=== PATIENT | female | born 1945 | race Caucasian/White ===

== ENCOUNTER 2017-05-21 18:31 | Observation (INO) | payer MEDICARE ==
[2017-05-21 19:22] LABS: PTT 27.7 SEC (22.9-36.1); Prothrombin Time 13.9 SEC (12.0-14.7)
[2017-05-21 19:23] LABS: Hematocrit 21.1 % (36.0-47.0); Mean Platelet Volume 11.1 fL (7.4-10.4); Red Blood Cell (RBC) Count 2.91 mill/uL (4.20-5.40); White Blood Cell (WBC) Count 7.8 thou/uL (4.8-10.8)
[2017-05-21 19:41] LABS: Anisocytosis MODERATE=16-30 cells (100X) (0-5/hpf); Band 7 % (5-11); Basophilic Stippling SLIGHT = 1-2 cells (100X) (None Seen); Elliptocytes SLIGHT = 2-5 cells (100X) (0-1/hpf); Hypochromia SLIGHT = 6-15 cells (100X) (0-5/hpf); Microcytosis MODERATE=15-30 cells (100X) (0-5/hpf); Neutrophil 64 % (42-75); Ovalocytes SLIGHT = 2-5 cells (100X) (0-1/hpf); Polychromasia SLIGHT = 2-3 cells (100X) (0-2/hpf); Schistocytes SLIGHT = 2-5 cells (100X) (0-1/hpf); Target Cells SLIGHT = 2-5 cells (100X) (0-1/hpf); Tear Drops SLIGHT = 2-5 cells (100X) (0-1/hpf)
[2017-05-21 20:00] LABS: Troponin I Less than 0.010 ng/mL (< 0.028)
[2017-05-21 20:02] LABS: Chloride 105 mmol/L (98-107)
[2017-05-21 20:05] LABS: Anion Gap 13 mmol/L (10-20); Carbon Dioxide 24 mmol/L (23-31)
[2017-05-21 20:12] LABS: ALT (SGPT) 10 U/L (8-55); AST (SGOT) 12 U/L (5-34); Alkaline Phosphatase 70 U/L (40-150); BUN (Urea Nitrogen) 14 mg/dL (9.8-20.1); Bilirubin, Total 0.2 mg/dL (0.2-1.2); CK (CPK) 50 U/L (29-168); Calc. Creatinine Clearance 0 mL/min (70-130); Estimated GFR-MDRD 52; Protein, Total 6.8 g/dL (6.0-8.3)
--- NOTE | 2017-05-21 20:19 | RAD ---
AP VIEW CHEST 05/21/17 HISTORY: Chest pain. FINDINGS: AP view chest is obtained on 05/21/17. Left shoulder reversed arthroplasty is seen. The lungs are well aerated. No evidence of active intrathoracic disease is seen. No evidence of effus ions, pneumonia or pneumothorax seen. IMPRESSION: Unremarkable AP view chest. POS: [facility]
[2017-05-21 22:19] VITALS: BMI 34.7
[2017-05-21] MEDS ORDERED: HYDROcodone/Acetaminophen 10/325 mg Tablet PO PRN (22:45)
[2017-05-21] MEDS ORDERED: tiZANidine HCl 4 MG TAB PO PRN (22:45)
[2017-05-21] MEDS ORDERED: Senokot 8.6 MG TAB PO PRN (22:49)
[2017-05-21] MEDS ORDERED: Ondansetron ODT 4 MG TAB PO PRN (22:49)
[2017-05-21] MEDS ORDERED: Acetaminophen 325 MG TAB PO PRN (22:49)
--- NOTE | 2017-05-21 23:15 | PDOC.EVN ---
Event Note - Event Note Event Note: Attending H&P I personally evaluated the patient and discussed the management with Dr. Wray. I have reviewed the written H&P and it is repeated by me. I agree with the History, Examination, Assessment and Plan documented above with any addition or exceptions noted below.
[2017-05-22] MEDS ORDERED: Loratadine 10 MG TAB PO PRN (00:10)
--- NOTE | 2017-05-22 00:50 | HP-2 ---
CODE STATUS: FULL. PRIMARY CARE PHYSICIAN: Dr. Kody Drummond. ATTENDING: Hemant Galvez M.D. RESIDENT: Brianna Wray DO HISTORIAN: The patient. CHIEF COMPLAINT: Low hemoglobin and fatigue x2 weeks. HISTORY OF PRESENT ILLNESS: The patient is a 72-year-old female with past medical history of iron-de ficiency anemia last admitted in 12/2015 for a GI bleed here today due to critical lab value of hemog lobin of 6.0 from PCP lab draw done today. The patient reports she has been having increased fatigue recently. She was in a lot of pain. Had a home health nurse come and draw labs and got a call toluis fernando young to come into the hospital. She has had a chronic history of this problem, receiving 1 unit of bloo d within the last 2 weeks in [place]. She has melenic stools off and on, reports about every 4-6 wee ks. She reports she will have lower abdominal cramping and the next morning have melenic stools. In the past, a year ago, she had a colonoscopy and EGD which revealed only Jarod erosions and hiatal hernia with a colonic polyp. There was no obvious source for her bleeding at that time. She takes i maribel every other day for this issue and was to follow up with a GI doctor, although she has lost follo wup. The patient does have a family history of her mom with colectomy due to so many polyps. They w ere not able to pass a scope through and also, mother with increased bleeding. The patient has never seen a operater in the past. PAST MEDICAL HISTORY: 1. Osteoarthritis. 2. Iron-deficiency anemia. 3. Spinal stenosis. 4. Fibromyalgia. 5. Hypertension. 6. Kauffman's palsy. 7. Gout. 8. Anxiety. 9. Depression. PAST SURGICAL HISTORY: 1. Left shoulder. 2. Right hand. 3. Diskectomy of lumbar area. ALLERGIES: SULFA. MEDICATIONS: 1. Iron 325 mg p.o. q. 2 days. 2. MiraLax 17 grams p.o. daily p.r.n. 3. Colace 100 mg p.o. daily. 4. Vitamin B12 1000 mcg p.o. daily. 5. Vasotec 10 mg p.o. daily. 6. Celexa 40 mg p.o. daily. 7. Wellbutrin 100 mg p.o. daily. 8. Allopurinol 300 mg p.o. daily. 9. [place] 10/325 mg one tab p.o. q. 6 hours p.r.n. 10. Glucosamine/chondroitin 1 capsule p.o. daily. 11. Protonix 40 mg p.o. daily. 12. Daily multivitamin. 13. Zanaflex 2 tabs p.o. at bedtime p.r.n. FAMILY HISTORY: Mother with precancerous lesions, emergency hysterectomy due to bleeding, increased bleeding from bladder on one occasion, colectomy due to many polyps. SOCIAL HISTORY: The patient denies tobacco use, reports social drinking with 1 Grundy drink per wee k and no drug use. REVIEW OF SYSTEMS: A 12-point review of systems was performed and revealed symptoms discussed in HPI . Additional symptoms, she endorses was a mild amount of shortness of breath today in the ER, which has since resolved now along with chronic back pain and left shoulder pain. All other review of syst ems was negative. Notably, no hematemesis, nausea, vomiting, or diarrhea. PHYSICAL EXAMINATION: VITAL SIGNS: Blood pressure 137/63, pulse 98, respiratory rate 16, T-max 98.6, pulse ox 100% on 2 li ters, current weight 91.17 kilograms (of note, when the patient was evaluated, was satting 96%-97% on room air). GENERAL: The patient is alert and oriented x4, in no acute distress, appropriately interactive. EYES: PERRLA. EOMI. Does have conjunctival pallor. ENT: Oropharynx within normal limits. CARDIOVASCULAR: Regular rate and rhythm with a 3/6 systolic murmur. Radial pulses 2+. RESPIRATORY: Normal effort, no retractions. LUNGS: Clear to auscultation bilaterally. SKIN: Warm and dry. ABDOMEN: Soft and nontender. Bowel sounds are present in all 4 quadrants. No masses or distention. EXTREMITIES: No clubbing, cyanosis. Does have 1+ pitting edema in bilateral lower extremities. MUSCULOSKELETAL: Structure within normal limits. NEUROLOGIC: The patient does have a facial droop on the left with ptosis and mouth droop from chroni c Kauffman's palsy at baseline. PSYCHIATRIC: Appropriate. The patient is tangential in her speaking. LABORATORY DATA AND IMAGIN. CBC: White blood cell count 7.8, hemoglobin 6.6, hematocrit 21.1, platelets 262, MCV 72.3. 2. Chemistries: Sodium 138, potassium 33.9, chloride 105, CO2 24, BUN 14, creatinine 1.03, glucose 106, GFR 52, calcium 9.0, total protein 6.8, albumin 3.8, AST 12, ALT 10, alkaline phosphatase 70, to gavin bilirubin 0.2. 3. Coags: PT 13.9, PTT 27.7, INR 1.1. Blood type B positive, antibody negative. 4. CK 50, CK-MB 1.1, troponins less than 0.010. 5. Peripheral smear: 16-30 anisocytosis, 15-30 microcytosis, 6-15 hypochromia, 2-3 polychromasia, 1 -2 basophilic stippling, 2-5 target cells, 3-5 cystocytes, 3-5 ovalocytes, 3-5 elliptocytes, 3-5 tear drop cells. 6. EKG with occasional PACs, sinus tachycardia. ASSESSMENT AND PLAN: 1. Symptomatic anemia. With the patient's history of iron deficiency, her microcytosis, and her rep orted melena stools despite a negative FOBT today in the ED, our concern for possible gastrointestina l bleed, possibly small bowel which has not been evaluated with upper and lower endoscopy. We will c onsult GI in the morning. There is also a concern with her abnormalities of her peripheral smear for possible other underlying etiology for anemia. We will order lead screen, haptoglobin, retic count, B12, and folate. The patient will likely need a Hematology workup outpatient. The patient's vital signs are stable. We will transfuse 2 units packed red blood cells and repeat H&H in the morning. T he patient is with transfusion only 2 weeks ago and now down to 6.6. 2. Melena. FOBT is negative today. We will recheck an FOBT and likely need repeat colonoscopy with family history. Consider tagged RBC study for evaluation of possible bleed in areas that are not ab le to be seen by colonoscopy and EGD. 3. Chronic back pain. We will continue her home [place] and Zanaflex. 4. Hypertension. We will continue her Vasotec. Currently, stable. 5. Systolic murmur. The patient reports that she had a full evaluation with echocardiogram done in 2011. With increased lower extremity swelling, we will likely need repeat echo as outpatient. Due t o the possibility of murmur and lower extremity swelling being a sign of congestive heart failure, we will give a small dose of Lasix post-transfusion. 6. Anxiety. The patient does appear anxious on exam. We will continue her home medications of Meredith xa and Wellbutrin. 7. Fibromyalgia. We will continue home medications for pain. 8. Venous thromboembolism prophylaxis. We will give sequential compression devices with current pos sibility of bleeding. DISPOSITION AND LENGTH OF HOSPITAL STAY: 1-2 days. Symptomatic medications will be provided. History and physical exam, as well as management, discussed with Dr. Hemant Galvez.
[2017-05-22] MEDS ORDERED: Furosemide 20 MG/2 ML VIAL SLOW IVP SCH (03:00)
--- NOTE | 2017-05-22 06:07 | PDOC.FM ---
- Subjective Subjective: Patient states she feels great today. She is ready to be discharged so that she can make a dentist appointment. She denies any black or tarry stools at this time. She denies abdominal pain, lightheadedness, or weakness. She has no other complaints at this time. - Objective Vital Signs & Weight: Vital Signs (12 hours) Temp Pulse Pulse Resp BP BP Pulse Ox 05/22/17 03:58 98.5 F 85 20 162/67 H 98 05/22/17 01:31 98.3 F 90 20 149/68 H 96 05/22/17 00:52 98.5 F 103 H 20 138/61 97 05/22/17 00:51 98.3 F 90 20 149/68 H 96 05/21/17 22:23 98.4 F 106 H 18 146/71 H 96 05/21/17 22:00 98.8 F 101 H 101 H 16 136/68 136/68 95 Weight Weight 91.852 kg I&O: 05/20/17 05/21/17 05/22/17 06:59 06:59 06:59 Intake Total 938 Balance 938 Result Diagrams: 05/22/17 07:28 05/21/17 19:01 Phys Exam - Physical Examination HEENT: moist MMs Neck: no nodes Respiratory: no wheezing, clear to auscultation bilateral Cardiovascular: RRR systolic murmur present Gastrointestinal: soft, non-tender, no distention, positive bowel sounds Musculoskeletal: no edema, pulses present Neurological: non-focal, normal sensation, moves all 4 limbs Lymphatic: no nodes Psychiatric: normal affect, A&O x 3 Skin: no rash Dx/Plan (1) Symptomatic anemia Code(s): D64.9 - ANEMIA, UNSPECIFIED Status: Acute Plan: -Long history of Iron deficiency anemia -s/p 2u pRBC -Hgb this AM 8.7 -Reticulocyte index is 1.4 indicating hypoproliferation -Likely discharged today if not symptomatic for outpatient follow up with [facility] [facility] (2) Melena Code(s): K92.1 - MELENA Status: Acute Plan: -Negative FOBT -Patient states subjective history -Will likely need outpatient follow up with GI (3) Systolic murmur Code(s): R01.1 - CARDIAC MURMUR, UNSPECIFIED Status: Acute Plan: -Last echo in 2011 -Recommend outpatient follow up for this (4) Fibromyalgia Status: Acute Plan: -Continue home meds (5) Anxiety Code(s): F41.9 - ANXIETY DISORDER, UNSPECIFIED Status: Chronic Plan: -Continue home meds - Plan Plan: Patient is asymptomatic and hgb has elevated to 8.7. Patient will be discharged for outpatient follow up.
[2017-05-22 06:42] LABS: IRF 0.562 Ratio (0.163-0.362); Reticulocyte Count 3.1 % (0.5-1.5)
[2017-05-22 06:51] LABS: Iron 9 ug/dL (50-170)
[2017-05-22 07:38] LABS: Hematocrit 28.6 % (36.0-47.0); Mean Platelet Volume 11.1 fL (7.4-10.4); Red Blood Cell (RBC) Count 3.72 mill/uL (4.20-5.40); White Blood Cell (WBC) Count 8.3 thou/uL (4.8-10.8)
[2017-05-22 07:58] LABS: Anion Gap 11 mmol/L (10-20); BUN (Urea Nitrogen) 13 mg/dL (9.8-20.1); Calc. Creatinine Clearance 81 mL/min (70-130); Calcium 8.9 mg/dL (7.8-10.44); Carbon Dioxide 28 mmol/L (23-31); Chloride 104 mmol/L (98-107); Estimated GFR-MDRD 63
[2017-05-22] MEDS ORDERED: Ferrous Sulfate 325 MG TAB PO SCH (08:00)
[2017-05-22 08:22] LABS: Band 2 % (5-11); Hypochromia SLIGHT = 6-15 cells (100X) (0-5/hpf); Microcytosis SLIGHT = 6-15 cells (100X) (0-5/hpf); Neutrophil 43 % (42-75); Ovalocytes SLIGHT = 2-5 cells (100X) (0-1/hpf); Polychromasia SLIGHT = 2-3 cells (100X) (0-2/hpf); Reactive Lymphocytes 1 % (0-10)
[2017-05-22 08:25] VITALS: BP 143/76; TEMP 98.8
[2017-05-22] MEDS ORDERED: [UNRECOGNIZED DRUG - OTHER] PO SCH (09:00)
[2017-05-22] MEDS ORDERED: Multivitamin W/ Minerals 1 TAB PO SCH (09:00)
[2017-05-22] MEDS ORDERED: Docusate 100 MG CAP PO SCH (09:00)
[2017-05-22] MEDS ORDERED: Citalopram 20 MG TAB PO SCH (09:00)
[2017-05-22] MEDS ORDERED: Allopurinol 300 MG TAB PO SCH (09:00)
[2017-05-22] MEDS ORDERED: Cyanocobalamin (Vitamin B-12) 1,000 MCG TAB PO SCH (09:00)
[2017-05-22] MEDS ORDERED: Polyethylene Glycol 3350 17 GM Packet PO PRN (09:00)
--- NOTE | 2017-05-22 11:51 | ADD-PRG ---
DATE OF SERVICE: 05/22/2017 This is an addendum to the note of Dr. Toribio Cortes. Ms. Brown is a very pleasant, alert 72-year-old white female who was admitted with a profound anemi a with a hemoglobin of 6.6. She has been transfused to a level of 8.7. Her ferritin level on admiss ion was 5. She has a prior diagnosis of iron deficiency anemia, but remains anemic despite taking or al iron. She has also had a negative workup for celiac disease. Also of interest is the fact that h er peripheral smear is quite abnormal showing target cells, teardrops cells, ovalocytes, elliptocytes and schistocytosis. Her reticulocyte index was 0.9. She is feeling and looking much better and is anxious to go home. She will be discharged to follow up with Dr. Grimm in GI and with Hematology. I believe her anemia is likely multifactorial. She obviously has an element of iron deficiency with a ferritin of 5, but we need to also consider the possibility of thalassemia or myeloproliferative di sorder given her abnormal peripheral smear and her nonresponse to oral iron.
--- NOTE | 2017-05-22 13:12 | DIS-2 ---
DATE OF ADMISSION: 05/21/2017 DATE OF DISCHARGE: 05/22/2017 RESIDENT: Toribio Cortes MD ADMITTING ATTENDING: Hemant Galvez M.D. DISCHARGE ATTENDING: Bishop Alejandre MD CONSULTATIONS: Case management for financial assistance. PROCEDURES: The patient did undergo a chest x-ray on 05/21/2017 that showed no evidence of active intrathoracic disease seen. No evidence of effusions, pneumonia, or pneumothorax seen. Transfusion of 2 units of packed red blood cells. PRIMARY DIAGNOSES: 1. Symptomatic anemia. 2. Melena. 3. Systolic murmur. SECONDARY DIAGNOSES: 1. Fibromyalgia. 2. Anxiety. DISCHARGE MEDICATIONS: 1. Multivitamin. 2. Celexa 40 mg. 3. Tizanidine 4 mg. 4. Allopurinol 300 mg. 5. [place] 10/325 mg. 6. Bupropion 100 mg. 7. Vitamin B12, 1000 mcg. 8. Glucosamine chondroitin. 9. Docusate 100 mg. 10. Enalapril maleate 10 mg. 11. Protonix 40 mg. 12. MiraLax 17 grams. 13. Ferrous sulfate 325 mg. 14. Cetirizine 10 mg. DISCONTINUED MEDICATIONS: None. HISTORY OF PRESENT ILLNESS AND HOSPITAL COURSE: This is a 72-year-old female with past medical history of iron deficiency anemia, last admitted in December 2015 for a GI bleed, here today due to a critical lab value of hemoglobin 6.0 from PCP lab draw done today. The patient reports she has been having increased fatigue recently. She was in a lot of pain. Had home health nurse come and saw , draw labs and got a call today to come to the hospital. She has had a chronic history of this problem receiving 1 unit of blood within the last 2 weeks in [place]. She has melenic stools off and on and reports about every 4- 6 weeks. She reports she will have lower abdominal cramping pain and next morning will have melenic stools. In the past year ago, she had a colonoscopy and EGD which revealed only Jarod erosions and a hiatal hernia with colonic polyps. There was no obvious source for her bleeding at that time. She takes iron every other day for this issue and has followed up with GI doctor, although she has lost followup. The patient does have a family history with her mom with colectomy due to so many polyps. They are not able to pass the scope through and also the mother had increased bleeding. Patient has never seen a warp scouring vat tender in the past. During this hospitalization, the patient was transfused 2 units of blood with her hemoglobin increasing from 6.6-8.7. Patient's platelet count was ranged from 218-262. She did have a reticulocyte count of 3.1 that translated into a reticulocyte index of 1.4 noting that her bone marrow is not responding appropriately to stimulation. She was also found to have a ferritin of 5.03, which is very low and she needs to be repleted at that time. Also, her iron was 9, which is also low. She had vitamin B12 of 605. All other labs are unremarkable. She did have a peripheral smear that showed hypochromia polychromasia, basophilic stippling, anisocytosis, microcytosis, target cells, teardrops cells , ovalocytes, elliptocytes, schistocytes. This is very confusing picture as anemia of this case should point to one or a few of these morphologies, but definitely not having a marcano positive morphology. We do have some suspicion that she might have an underlying myelodysplastic or myeloproliferative disease and so she is undergoing a hemoglobin electrophoresis and a serum protein electrophoresis test and we will follow up with those results with her in the coming days when those are made available. She has never seen a warp scouring vat tender and so we feel that it is important with these findings and in coordination of her profound anemia that she be seen by warp scouring vat tender in the near future. Also, it has been like 1.5 years since her last GI consultation with Dr. Grimm and we do feel like she would benefit from an outpatient consultation with Dr. Grimm or another calendar control clerk blood bank to determine if they wanted to do anything more for her melenic stools. She also followed up with her PCP, Dr. Carlson to coordinate the care on this. The patient otherwise had no other complications during this hospitalization. She was no longer symptomatic and was no longer fatigued, felt like she had a lot of energy and said that she was ready to get going. She otherwise had no complications during this hospitalization and was discharged in the appropriate condition. DISPOSITION: Stable. DISCHARGE INSTRUCTIONS: 1. Location: She will be discharged home in her own care. 2. Diet: Will be a heart healthy diet. 3. Activity: Will be as tolerated with no restrictions. A follow up will be with Dr. Grimm in 1-2 weeks, her primary care physician, Dr. Carlson by tomorrow 05/23/2017, and with Dr. Kj Lafleur, the on-call warp scouring vat tender for today. She has seen the nurse practitioner Shannan San in the past and so we recommend that she follow up with Hematology clinic here for further workup for a myelodysplastic versus myeloproliferative disease. CHARBEL
[2017-05-24 05:15] LABS: Haptoglobin 120 mg/dL (34-200)
[2017-05-28 05:15] LABS: Lead-Whole Blood Less than 1 ug/dL (0-19)
--- NOTE | 2017-06-06 13:27 | EKG ---
Test Reason : Blood Pressure : / mmHG Vent. Rate : 107 BPM Atrial Rate : 107 BPM P-R Int : 128 ms QRS Dur : 082 ms QT Int : 334 ms P-R-T Axes : 049 024 059 degrees QTc Int : 445 ms Sinus tachycardia with Premature atrial complexes with Abberant conduction Otherwise normal ECG Confirmed by AL AMANDA ([id number]), subeditor ANEESH FAIR ([id number]) on 06/06/2017 1:26:29 PM Referred By: Confirmed By:AL AMANDA
== END 2017-05-22 11:39 | disposition home or self-care (01) ==
LOC: ERS 18:31 → T4-A 21:41
PROVIDERS: ADMIT Family Medicine; ATTEND Family Medicine
DX: D50.9 Iron deficiency anemia, unspecified (principal); K92.1 Melena; R01.1 Cardiac murmur, unspecified; M79.7 Fibromyalgia; F41.9 Anxiety disorder, unspecified; M19.90 Unspecified osteoarthritis, unspecified site; I10 Essential (primary) hypertension; G51.0 Bell's palsy; M10.9 Gout, unspecified; M54.9 Dorsalgia, unspecified; G89.29 Other chronic pain; Z79.899 Other long term (current) drug therapy; Z88.2 Allergy status to sulfonamides; Z98.890 Other specified postprocedural states
CPT/HCPCS: 36430; 71010; 80048; 80053; 82274; 82550; 82553; 82607; 82728; 83010; 83540; 83550; 83655; 84484; 85025 ×2; 85046; 85610; 85730; 86850; 86900; 86901; 86920; 93005; 94760; 99285; G0378; P9016 ×2; 36415; A4216; J1940

== ENCOUNTER 2017-07-18 13:19 | Inpatient (IN) | payer MEDICARE ==
[2017-07-18 14:20] LABS: ALT (SGPT) Less than 7 U/L (8-55); AST (SGOT) 9 U/L (5-34); Albumin 3.8 g/dL (3.4-4.8); Alkaline Phosphatase 70 U/L (40-150); Anion Gap 14 mmol/L (10-20); Anisocytosis MODERATE=16-30 cells (100X) (0-5/hpf); BUN (Urea Nitrogen) 14 mg/dL (9.8-20.1); Band 4 % (5-11); Bilirubin, Total 0.3 mg/dL (0.2-1.2); Calc. Creatinine Clearance 0 mL/min (70-130); Carbon Dioxide 27 mmol/L (23-31); Chloride 103 mmol/L (98-107); Elliptocytes SLIGHT = 2-5 cells (100X) (0-1/hpf); Estimated GFR-MDRD 57; Globulin 2.8 g/dL (2.4-3.5); Glucose 101 mg/dL (83-110); Hemoglobin 6.8 g/dL (12.0-16.0); Hypochromia MODERATE=16-30 cells (100X) (0-5/hpf); Large Platelets SLIGHT; Lymphocytes 16 % (21-51); MDiff Complete? YES; Mean Corpuscular HGB CONC 30.4 g/dL (32.0-36.0); Mean Corpuscular Hemoglobin 21.5 pg (27.0-31.0); Mean Corpuscular Volume 70.9 fl (81.0-99.0); Mean Platelet Volume 8.9 fL (7.4-10.4); Microcytosis MODERATE=15-30 cells (100X) (0-5/hpf); Monocytes 23 % (0-10); Neutrophil 56 % (42-75); Ovalocytes SLIGHT = 2-5 cells (100X) (0-1/hpf); PLT Morphology Comment Appears Increased; Platelet Count 406 thou/uL (130-400); Poikilocytosis SLIGHT = 6-15 cells (100X) (0-5/hpf); Polychromasia SLIGHT = 2-3 cells (100X) (0-2/hpf); Protein, Total 6.6 g/dL (6.0-8.3); RBC Distribution Width 18.4 % (11.5-14.5); Red Blood Cell (RBC) Count 3.18 mill/uL (4.20-5.40); Schistocytes SLIGHT = 2-5 cells (100X) (0-1/hpf); Sodium 140 mmol/L (136-145); Tear Drops SLIGHT = 2-5 cells (100X) (0-1/hpf); White Blood Cell (WBC) Count 4.7 thou/uL (4.8-10.8)
[2017-07-18] MEDS ORDERED: Acetaminophen 650 MG Suppository PR PRN (17:59)
[2017-07-18] MEDS ORDERED: Bisacodyl 5 MG TAB PO PRN (17:59)
[2017-07-18] MEDS ORDERED: Acetaminophen 325 MG TAB PO PRN (17:59)
[2017-07-18] MEDS ORDERED: Acetaminophen/Codeine 30-300mg Tablet PO PRN (18:00)
--- NOTE | 2017-07-18 18:55 | HP ---
PRIMARY CARE PHYSICIAN: Dr. Octavio Gates. CHIEF COMPLAINT: Generalized weakness. HISTORY OF PRESENT ILLNESS: Ms. Brown is a pleasant 72-year-old lady who was seen at [facility] on 07/18/2017. She was hospitalized at this facility from 05/21/2017 to 05/22/2017 for a low hemoglobin and fatigue. At that point, she received packed RBC transfusions. She was referred to Hematology and Gastroente rology Services as outpatient. She followed up with Hematology Service and was told that she did not have a hematologic malignancy. She has not followed up with Gastroenterology Service. She reports that over the last couple of weeks, she has been having generalized weakness. She report s shortness of breath with exertion. She reports generalized body aches. She also reports lighthead edness and episodes where she might pass out. She denies any fevers or chills. She denies any nause a or vomiting. REVIEW OF SYSTEMS: The following complete review of systems was negative, unless otherwise mentioned in the HPI or below: Constitutional: Weight loss or gain, ability to conduct usual activities. Skin: Rash, itching. Eyes: Double vision, pain. ENT/Mouth: Nose bleeding, neck stiffness, pain, tenderness. Cardiovascular: Palpitations, dyspnea on exertion, orthopnea. Respiratory: Shortness of breath, wheezing, cough, hemoptysis, fever or night sweats. Gastrointestinal: Poor appetite, abdominal pain, heartburn, nausea, vomiting, constipation, or diarr hea. Genitourinary: Urgency, frequency, dysuria, nocturia. Musculoskeletal: Pain, swelling. Neurologic/Psychiatric: Anxiety, depression. Allergy/Immunologic: Skin rash, bleeding tendency. PAST MEDICAL HISTORY: Significant for osteoarthritis, iron deficiency anemia, spinal stenosis, fibro myalgia, hypertension, Kauffman's palsy, gout, anxiety, depression, anemia. PAST SURGICAL HISTORY: Significant for left shoulder surgery, right shoulder surgery, diskectomy of lumbar area. She also reports having bidirectional GI scopes about a year ago. FAMILY HISTORY: Mother with precancerous lesions, emergency hysterectomy due to bleeding. She also had colectomy due to many polyps. SOCIAL HISTORY: The patient reports occasional alcohol use, no tobacco use, and no recreational drug use. ALLERGIES: SULFA. CURRENT MEDICATIONS: These need to be clarified, but appear to include iron, MiraLax, Colace, vitami n B12, Vasotec, Celexa, Wellbutrin, allopurinol, [place], glucosamine/chondroitin sulfate, Protonix, mu ltivitamins and Zanaflex. PHYSICAL EXAMINATION: GENERAL: On examination, Ms. Brown is awake and alert, not in acute distress. VITAL SIGNS: Blood pressure is 115/41, pulse is 77, she is breathing at rate of 18, and saturating 9 7% on room air. She is afebrile. EYES: She has conjunctival pallor, but no scleral icterus. ENT: Moist mucosal membranes, no oropharyngeal erythema or exudates. NECK: Supple, nontender, normal range of movement, trachea is midline. RESPIRATORY: Accessory muscles of breathing are not active. Chest wall movements are symmetrical bi laterally. Lungs are clear to auscultation without wheeze, rhonchi or crepitations. CARDIOVASCULAR: S1 and S2 are heard, regular. Peripheral pulses palpable. No carotid bruit, no per icardial rub. ABDOMEN: Soft, nontender, bowel sounds heard, no hepatomegaly, no splenomegaly. NEUROLOGIC: Cranial nerves II-XII are intact. Deep tendon reflexes are 2+. MUSCULOSKELETAL: Power is 5/5 in all four extremities. She has bilateral lower extremity edema. LYMPHATIC: No cervical lymphadenopathy. SKIN: No rashes or subcutaneous nodules. PSYCHIATRIC: Normal mood, normal affect, patient is oriented to person, place, and time. LABORATORY DATA AND IMAGING: Ms. Brown's labs and investigations were reviewed. She has a white c ount of 4700, hemoglobin 6.8, last known hemoglobin 6.1 on 07/16/2017 and 8.7 on 05/22/2017, MCV decr eased at 70.9, elevated RDW of 18.4, elevated platelet count of 406,000, last known platelet count 31 8,000 on 07/16/2017, unremarkable liver profile. ASSESSMENT AND PLAN: Ms. Brown is a pleasant 72-year-old lady, who was seen at [facility] on 07/18/2017. Her problem list includes: 1. Symptomatic anemia. She reports anemia with symptoms of shortness of breath as well as near sync ope. She will be admitted to the hospital for further management. Emergency room physician has cons ulted GI and Hematology Services. She has already seen air force pilot as outpatient, we will consumer credit counselor t hat consult. We await GI service input. The patient appears reluctant to undergo scope studies. We will recheck her hemoglobin and provide further transfusions as needed. I should note that her last occult blood test was negative during her previous hospitalization, another test ordered by the [facility] physician has not been reported yet. 2. Thrombocythemia: Mild, likely reactive to anemia. We will recheck platelet count. 3. Hypertension: Monitor vital signs, titrate antihypertensives as needed. 4. Osteoarthritis: Avoid nonsteroidal anti-inflammatory drugs. 5. Fibromyalgia: Continue home medications. Many thanks for allowing me to participate in Ms. Brown's care. Please feel free to contact me wit h any questions or concerns. LEVEL OF RISK: Moderate. LEVEL OF COMPLEXITY: Moderate.
[2017-07-18 20:04] VITALS: BMI 34.7
[2017-07-18] MEDS ORDERED: HYDROcodone/Acetaminophen 5/325 mg Tablet PO PRN ×2 (21:27)
[2017-07-18] MEDS: Sodium Chloride 0.9% 1,000 ML IV SCH (21:39)
[2017-07-19 05:27] LABS: Band 4 % (5-11); Hemoglobin 7.4 g/dL (12.0-16.0); Hypochromia SLIGHT = 6-15 cells (100X) (0-5/hpf); Lymphocytes 23 % (21-51); MDiff Complete? YES; Mean Corpuscular HGB CONC 30.7 g/dL (32.0-36.0); Mean Corpuscular Hemoglobin 22.6 pg (27.0-31.0); Mean Corpuscular Volume 73.7 fl (81.0-99.0); Mean Platelet Volume 9.2 fL (7.4-10.4); Microcytosis SLIGHT = 6-15 cells (100X) (0-5/hpf); Monocytes 41 % (0-10); Neutrophil 32 % (42-75); PLT Morphology Comment Appears Adequate; Platelet Count 393 thou/uL (130-400); RBC Distribution Width 19.2 % (11.5-14.5); Red Blood Cell (RBC) Count 3.28 mill/uL (4.20-5.40)
[2017-07-19 05:31] LABS: Anion Gap 10 mmol/L (10-20); BUN (Urea Nitrogen) 13 mg/dL (9.8-20.1); Calc. Creatinine Clearance 88 mL/min (70-130); Calcium 8.9 mg/dL (7.8-10.44); Carbon Dioxide 27 mmol/L (23-31); Chloride 105 mmol/L (98-107); Estimated GFR-MDRD 71; Glucose 99 mg/dL (83-110); Potassium 3.7 mmol/L (3.5-5.1); Sodium 138 mmol/L (136-145)
[2017-07-19] MEDS: Sodium Chloride 0.9% 1,000 ML IV SCH ×2 (09:30→09:40)
[2017-07-19] MEDS: HYDROcodone/Acetaminophen 10/325 mg Tablet PO PRN ×2 (13:36→19:16)
[2017-07-19] MEDS ORDERED: Citalopram 20 MG TAB PO SCH (14:00)
[2017-07-19] MEDS ORDERED: Docusate 100 MG CAP PO SCH (14:00)
[2017-07-19] MEDS ORDERED: Bupropion 100 MG SR TAB PO SCH (14:00)
[2017-07-19] MEDS ORDERED: Ferrous Sulfate 325 MG TAB PO SCH (14:00)
[2017-07-19] MEDS ORDERED: Multivitamin W/ Minerals 1 TAB PO SCH (14:00)
[2017-07-19] MEDS ORDERED: Allopurinol 300 MG TAB PO SCH (14:00)
--- NOTE | 2017-07-19 18:02 | PDOC.PN ---
- Subjective Encounter Start Date: 07/19/17 Encounter Start Time: 08:40 Pt seen for anemia. Denies chest pain or shortness of breath. No presyncope. - Objective MAR Reviewed: Yes Vital Signs & Weight: Vital Signs (12 hours) Temp Pulse Pulse Resp BP BP BP 07/19/17 17:45 97.4 F L 75 16 123/74 07/19/17 15:10 97.8 F 90 18 144/70 H 07/19/17 15:05 97.8 F 85 18 144/70 H 07/19/17 14:56 173/74 H 07/19/17 14:52 98.3 F 85 20 173/74 H 07/19/17 14:41 98.3 F 85 20 173/74 H 07/19/17 12:39 97.8 F 85 20 07/19/17 08:29 97.6 F 73 20 07/19/17 08:00 97.6 F 73 20 BP Pulse Ox 07/19/17 17:45 07/19/17 15:10 92 L 07/19/17 15:05 07/19/17 14:56 07/19/17 14:52 07/19/17 14:41 07/19/17 12:39 156/74 H 92 L 07/19/17 08:29 164/82 H 93 L 07/19/17 08:00 164/82 H 93 L Weight Weight 196 lb I&O: 07/18/17 07/19/17 07/20/17 06:59 06:59 06:59 Intake Total 1275 830 Balance 1275 830 Result Diagrams: 07/19/17 04:26 07/19/17 04:26 Phys Exam - Physical Examination Obese HEENT: PERRLA, moist MMs, sclera anicteric, oral pharynx no lesions conjunctival pallor Neck: no nodes, no JVD, supple, full ROM Respiratory: no wheezing, no rales, no rhonchi, clear to auscultation bilateral Cardiovascular: RRR, no rub Gastrointestinal: soft, non-tender, no distention, positive bowel sounds Neurological: moves all 4 limbs Psychiatric: normal affect Dx/Plan (1) Anemia Code(s): D64.9 - ANEMIA, UNSPECIFIED Status: Acute (2) Fibromyalgia Status: Chronic (3) Anxiety Code(s): F41.9 - ANXIETY DISORDER, UNSPECIFIED Status: Chronic (4) GERD (gastroesophageal reflux disease) Code(s): K21.9 - GASTRO-ESOPHAGEAL REFLUX DISEASE WITHOUT ESOPHAGITIS Status: Chronic (5) HLD (hyperlipidemia) Code(s): E78.5 - HYPERLIPIDEMIA, UNSPECIFIED Status: Chronic (6) HTN (hypertension) Code(s): I10 - ESSENTIAL (PRIMARY) HYPERTENSION Status: Chronic - Plan out of bed/ambulate, DVT proph w/SCDs * . Discussed with GI services. Will transfuse another unit pRBC. Plan for EGD tomorrow noted. Monitor vital signs, titrate antihypertensives as needed. Review of Systems - Review of Systems Constitutional: negative: fever, chills, sweats, weakness, malaise Respiratory: negative: Cough, Dry, Shortness of Breath, Hemoptysis, SOB with Excertion, Pleuritic Pain, Sputum, Wheezing Cardiovascular: negative: chest pain, palpitations, orthopnea, paroxysmal nocturnal dyspnea, edema, light headedness Gastrointestinal: negative: Nausea, Vomiting, Abdominal Pain, Diarrhea, Constipation, Melena, Hematochezia Genitourinary: negative: Dysuria, Frequency, Incontinence, Hematuria, Retention - Medications/Allergies Allergies/Adverse Reactions: Allergies Allergy/AdvReac Type Severity Reaction Status Date / Time Sulfa (Sulfonamide Allergy Intermediate Hives Verified 07/01/15 19:47 Antibiotics) Medications: Current Medications Acetaminophen (Tylenol) 650 mg PO Q4H PRN PRN Reason: Headache/Fever or Pain Acetaminophen (Tylenol) 650 mg MT Q4H PRN PRN Reason: Headache/Fever or Pain Acetaminophen/Codeine Phosphate (Tylenol #3) 1 tab PO Q6H PRN PRN Reason: Pain Hydrocodone Bitart/Acetaminophen ([place] 10/325) 1 tab PO Q6HR PRN PRN Reason: Pain Last Admin: 07/19/17 13:36 Dose: 1 tab Allopurinol (Zyloprim) 300 mg PO DAILY ISSA Bisacodyl (Dulcolax) 10 mg PO DAILYPRN PRN PRN Reason: Constipation Bupropion HCl (Wellbutrin Sr) 100 mg PO DAILY ISSA Cholecalciferol (Vitamin D3) 1,000 units PO DAILY ISSA Citalopram Hydrobromide (Celexa) 40 mg PO DAILY ISSA Docusate Sodium (Colace) 100 mg PO DAILY ISSA Enalapril Maleate (Vasotec) 10 mg PO DAILY ISSA Ferrous Sulfate (Feosol) 325 mg PO DAILY ISSA Iron/Minerals/Multivitamins (Theragran M) 1 tab PO DAILY ISSA Loratadine (Claritin) 10 mg PO DAILY PRN PRN Reason: ALLERGIES Polyethylene Glycol (Miralax) 17 gm PO DAILYPRN PRN PRN Reason: CONSTIPATION Sodium Chloride (Flush - Normal Saline) 10 ml IVF Q12HR ISSA Sodium Chloride (Flush - Normal Saline) 10 ml IVF PRN PRN PRN Reason: Saline Flush Sodium Chloride (Flush - Normal Saline) 10 ml IVF PRN PRN PRN Reason: Saline Flush Tizanidine HCl (Zanaflex) 4 mg PO HS PRN PRN Reason: MUSCLE SPASMS
[2017-07-19] MEDS ORDERED: tiZANidine HCl 4 MG TAB PO PRN (21:00)
--- NOTE | 2017-07-20 06:51 | CON ---
DATE OF CONSULTATION: 07/19/2017 REFERRING PHYSICIAN: Dr. Octavio Cuadra. REASON FOR CONSULTATION: Symptomatic anemia. HISTORY OF PRESENT ILLNESS: Ms. Rosanna Brown is a very pleasant 72-year-old female with f atigue, tiredness, low energy over the last several weeks. The patient has had anemia from before. The patient denies any abdominal pain, nausea or vomiting at the present time. No dysphagia or odyno phagia. The patient has been on oral iron therapy and agrees the stools are actually olive green. H owever, several weeks ago, she had an episode of black tarry stool, lasting for several days. At nicci t time, she did not seek any medical help. The patient has had history of anemia over the last coupl e of years. The patient was hospitalized here in 06/2015 with anemia. She was seen by Dr. Yoav Grimm. She had an EGD done and was found to have hiatus hernia and also Jarod ulcers in the hi atus hernia. The colonoscopy with removal of a couple of tiny polyps and also was found to have sigm oid diverticulosis. The patient has been seeing Dr. Rex Grimm. As per the consult by Dr. Renea aguilar, the patient had a capsule endoscopy in the past, which was negative for pathology. The patien t was hospitalized recently here and was referred to Hematology. Apparently, she has seen Dr. Bhargavi gonzalez as an outpatient in the office. The workup was basically negative. He was advised to stay on iro n supplement. The patient had been feeling tired and weak and had no energy for the last several wee ks. She says even if she stands up to cook something, she feels extremely fatigued and tired. She h as no dyspnea on exertion. No orthopnea. No PND. No chest pain, but for history of dark stools a f ew weeks ago, she has had no blood loss. There is no hematuria. No history of bleeding from the gum s, no history of nose bleeding. She came to the hospital because of the fatigue and tiredness. She had a CBC done. The CBC showed WBC of 4700, hemoglobin 6.8, hematocrit 22.5, MCV 70.9, indicating ir on deficiency. She has had 1 unit of packed RBCs. The blood count has come up to 7.4, hematocrit 24 .2. She still feels tired and fatigued, and no energy. She has no other relevant history. MEDICAL ILLNESSES: 1. Osteoarthritis. 2. Recurrent iron deficiency anemia. 3. Spinal stenosis. 4. Fibromyalgia. 5. Hypertension. 6. History of Kauffman's palsy. 7. Gout. 8. Anxiety and depression. 9. Hiatus hernia. 10. Colon polyp. 11. Diverticular disease. SURGERIES: 1. Status post left shoulder surgery. 2. Right shoulder surgery. 3. Lumbar diskectomy. 4. EGD and colonoscopy. 5. Negative capsule endoscopy. FAMILY HISTORY: Mother had some precancerous lesions in her womb and had a hysterectomy. She also h ad colectomy because of colon polyps. ALLERGIES: SULFA. SOCIAL HISTORY: Patient does not smoke, but drinks alcohol very occasionally. MEDICATIONS: Include iron supplements, MiraLax, Colace, vitamin B12, Vasotec. Other medicines inclu de Celebrex, Wellbutrin, allopurinol, [place], glucosamine, Protonix, multivitamin, Zanaflex. REVIEW OF SYSTEMS: A 10-point system reviewed. Constitutional: No history of any fever, night swea ts, or any weight loss. Does complain of poor energy, fatigue etc. Respiratory System: No history of chronic cough, dyspnea, hemoptysis. Cardiovascular System: No chest pain, no palpitation, no exe rtional dyspnea, orthopnea, or PND. Gastrointestinal: As in the history of present illness. Genito urinary: No hematuria, dysuria, or frequency of urination. Musculoskeletal: History of back pain, arthralgias. Endocrine: Unremarkable. Hematologic: Anemia with some fatigue and tiredness. Neuro /psychiatric: Unremarkable. PHYSICAL EXAMINATION: GENERAL: Patient is obese, appears very comfortable. She is awake, alert, oriented to time and plac e and person. VITAL SIGNS: Afebrile, pulse is 77, blood pressure 115/60. HEENT: Conjunctivae clear. NECK: Supple. No adenitis or thyromegaly noted. CARDIOVASCULAR SYSTEM: First and second heart sounds normal. LUNGS: Clear to auscultation. ABDOMEN: Soft and nontender. There is no organomegaly or masses. Bowel sounds normal. EXTREMITIES: Reveal no edema. CENTRAL NERVOUS SYSTEM: Grossly within normal limits. LABORATORY DATA: Microcytic anemia with a hemoglobin 6.8, coming to 7.4 today, MCV low at 70.9. Ser um chemistry: Sodium is 140, potassium 4, chloride 103, bicarbonate 27, BUN is 14, creatinine 0.96, glucose 101, calcium 9, bilirubin 0.3, AST 9, ALT 7, alkaline phosphatase 70. Her previous workups i ncluding EGD and colonoscopy by Dr. Grimm in the past. She also had a negative abdominal CAT scan a nd negative capsule endoscopy. CLINICAL IMPRESSION: Recurrent anemia without any definite history of GI bleeding. However, she adm its having black tarry stools a few weeks ago. She had a colonoscopy, which was negative in 2016. B ased on the history, I believe she most likely has some small bowel pathology to account for th e bleeding. RECOMMENDATIONS: 1. Transfuse 1 more unit of packed cells. 2. EGD tomorrow. 3. History of black tarry stool. If the EGD is negative, I would probably refer to a tertiary care center for enteroscopy.
[2017-07-20 06:57] LABS: Anion Gap 12 mmol/L (10-20); BUN (Urea Nitrogen) 11 mg/dL (9.8-20.1); Calc. Creatinine Clearance 84 mL/min (70-130); Calcium 9.7 mg/dL (7.8-10.44); Carbon Dioxide 27 mmol/L (23-31); Chloride 105 mmol/L (98-107); Estimated GFR-MDRD 68; Glucose 95 mg/dL (83-110); Potassium 3.9 mmol/L (3.5-5.1); Sodium 140 mmol/L (136-145)
[2017-07-20 06:59] LABS: Anisocytosis MODERATE=16-30 cells (100X) (0-5/hpf); Band 4 % (5-11); Hemoglobin 9.6 g/dL (12.0-16.0); Hypochromia SLIGHT = 6-15 cells (100X) (0-5/hpf); Lymphocytes 22 % (21-51); MDiff Complete? YES; Mean Corpuscular HGB CONC 31.3 g/dL (32.0-36.0); Mean Corpuscular Hemoglobin 23.4 pg (27.0-31.0); Mean Corpuscular Volume 74.7 fl (81.0-99.0); Mean Platelet Volume 9.1 fL (7.4-10.4); Microcytosis SLIGHT = 6-15 cells (100X) (0-5/hpf); Monocytes 23 % (0-10); Neutrophil 50 % (42-75); Ovalocytes SLIGHT = 2-5 cells (100X) (0-1/hpf); PLT Morphology Comment Appears Increased; Platelet Count 486 thou/uL (130-400); RBC Distribution Width 20.1 % (11.5-14.5); Reactive Lymphocytes 1 % (0-10); Red Blood Cell (RBC) Count 4.09 mill/uL (4.20-5.40); Schistocytes SLIGHT = 2-5 cells (100X) (0-1/hpf); Tear Drops SLIGHT = 2-5 cells (100X) (0-1/hpf); White Blood Cell (WBC) Count 6.5 thou/uL (4.8-10.8)
[2017-07-20] MEDS ORDERED: Promethazine HCl 25 MG/ML VIAL IM PRN (08:37)
[2017-07-20] MEDS ORDERED: Promethazine HCl 25 MG/ML VIAL SLOW IVP PRN (08:37)
[2017-07-20] MEDS ORDERED: Ondansetron HCl/PF 4 MG/2 ML Vial IVP PRN (08:37)
[2017-07-20] MEDS ORDERED: Polyethylene Glycol 3350 17 GM Packet PO PRN (09:00)
[2017-07-20] MEDS ORDERED: Ferrous Sulfate 325 MG TAB PO SCH (09:00)
[2017-07-20] MEDS ORDERED: Loratadine 10 MG TAB PO PRN (09:00)
[2017-07-20] MEDS: Citalopram 20 MG TAB PO SCH (09:10)
[2017-07-20] MEDS: Docusate 100 MG CAP PO SCH (09:10)
[2017-07-20] MEDS: Bupropion 100 MG SR TAB PO SCH (09:11)
[2017-07-20] MEDS: Allopurinol 300 MG TAB PO SCH (09:11)
[2017-07-20] MEDS: Multivitamin W/ Minerals 1 TAB PO SCH (09:11)
[2017-07-20] MEDS: HYDROcodone/Acetaminophen 10/325 mg Tablet PO PRN ×3 (09:14→23:12)
[2017-07-20] MEDS ORDERED: Propofol 200 MG/20 ML VIAL ONE (14:45)
--- NOTE | 2017-07-20 15:23 | OP ---
DATE OF PROCEDURE: 07/20/2017 OPERATIVE PROCEDURE: Esophagogastroduodenoscopy with biopsy. PREOPERATIVE DIAGNOSIS: A 72-year-old female with microcytic anemia, symptomatic. The pat ient also has had some melena stools few weeks ago. The patient is undergoing esophagogastroduodenos copy. POSTOPERATIVE DIAGNOSES: 1. Moderate size hiatus hernia and 1 to 2 small ulcerations within the hernia sac. 2. Friability and mucosal erythema at the gastroesophageal junction. 3. Multiple small gastric polyps. 4. Small ulcer in the gastric antrum. 5. Normal duodenum including the bulb and the descending part. PROCEDURE IN DETAIL: The patient was placed on her left lateral position and was given sedation by A nesthesia Department. A Pentax video gastroscope under direct vision was passed down the oropharynx, past the gastroesophageal junction, into the stomach and subsequently into the descending duodenum. The esophageal mucosa appears normal throughout the esophagus. At the GE junction, the mucosa was e dematous and friable. She had a moderate size hiatus hernia. With the hiatus hernia sac, she was fo und to have two small ulcerations. Also, the mucosa was somewhat friable. The gastric mucosa is nod ular and also showed multiple small polyps. Retroflexion failed to show any lesions in the fundus or cardia. The incisura angularis, no pathology seen. Over the gastric antrum, the patient was found to have small ulceration. The duodenal bulb and descending duodenum, no pathology seen. Random biop sies were obtained from the descending duodenum. Also, biopsies obtained of the gastric antrum and g astric body. The stomach was decompressed and the scope removed. RECOMMENDATIONS: 1. Continue iron supplement. 2. Continue PPI. 3. From a GI standpoint, the patient can be discharged home and she will follow up with Dr. Tenzin Grimm.
--- NOTE | 2017-07-20 19:32 | PRG ---
DATE OF SERVICE: 07/20/2017 SUBJECTIVE: The patient is seen and examined at the bedside. She is doing quite well. She came glory k from the procedure room where she had EGD done this morning. OBJECTIVE: VITAL SIGNS: Blood pressure is 96/55, temperature is 98.1, pulse is 93, respiratory rate is 16, and pulse oximetry is 92. HEENT: Her head is atraumatic, normocephalic. She has left facial palsy. Sclerae nonicteric. NECK: Supple. No lymphadenopathy. LUNGS: Clear. HEART: S1, S2 normal. Systolic murmur present at the left sternal border, most likely mitral regurg itation. ABDOMEN: Soft, nontender. Bowel sounds are present. No organomegaly. EXTREMITIES: No clubbing, cyanosis, or edema. NEUROLOGIC: She follows my commands. She moves her all 4 extremities. LABORATORY DATA: Showed white count of 6.5, hemoglobin 9.6, hematocrit 30.5, platelet count is 486,0 00. IMPRESSION: 1. Chronic anemia, status post EGD this morning which showed moderate size hiatal hernia and 1 to 2 cm small ulceration within the hernia sac. 2. Friability and mucosal erythema at the gastroesophageal junction. 3. Multiple small gastric polyps. 4. Small ulcer in the gastric antrum. 5. Normal duodenum including the bulb and the descending part. 6. Gastric ulcer as per today's EGD. 7. Hypertension. 8. Fibromyalgia, chronic. 9. Anxiety, chronic. 10. Gastroesophageal reflux disease. 11. Hyperlipidemia. PLAN: The patient is on PPI. She will go home. She cannot find a ride tonight, but she promised that she will be ready tomorrow morning. We will check retic count tomorrow morning with H and H and she shou ld be ready to go.
[2017-07-21 05:56] LABS: Anion Gap 14 mmol/L (10-20); BUN (Urea Nitrogen) 12 mg/dL (9.8-20.1); Calc. Creatinine Clearance 81 mL/min (70-130); Calcium 9.3 mg/dL (7.8-10.44); Carbon Dioxide 26 mmol/L (23-31); Chloride 104 mmol/L (98-107); Estimated GFR-MDRD 65; Glucose 104 mg/dL (83-110); Potassium 4.5 mmol/L (3.5-5.1); Sodium 139 mmol/L (136-145)
[2017-07-21 06:11] LABS: Band 2 % (5-11); Hemoglobin 8.8 g/dL (12.0-16.0); Lymphocytes 41 % (21-51); MDiff Complete? YES; Mean Corpuscular HGB CONC 31.2 g/dL (32.0-36.0); Mean Corpuscular Hemoglobin 23.6 pg (27.0-31.0); Mean Corpuscular Volume 75.8 fl (81.0-99.0); Mean Platelet Volume 10.4 fL (7.4-10.4); Monocytes 17 % (0-10); Neutrophil 39 % (42-75); PLT Morphology Comment Appears Adequate; Platelet Count 340 thou/uL (130-400); RBC Distribution Width 20.2 % (11.5-14.5); Red Blood Cell (RBC) Count 3.73 mill/uL (4.20-5.40); White Blood Cell (WBC) Count 6.4 thou/uL (4.8-10.8)
[2017-07-21 07:46] LABS: Ref Lab Test Ordered RETIC COUNT; Reference Lab Name LABCORP
[2017-07-21] MEDS ORDERED: Ferrous Sulfate 325 MG TAB PO SCH (08:00)
[2017-07-21 08:55] VITALS: BP 159/73; TEMP 97.8
[2017-07-21] MEDS: Bupropion 100 MG SR TAB PO SCH (10:34)
[2017-07-21] MEDS: Multivitamin W/ Minerals 1 TAB PO SCH (10:34)
[2017-07-21] MEDS: Allopurinol 300 MG TAB PO SCH (10:34)
[2017-07-21] MEDS: Citalopram 20 MG TAB PO SCH (10:34)
[2017-07-21] MEDS: Docusate 100 MG CAP PO SCH (10:35)
[2017-07-21] MEDS: HYDROcodone/Acetaminophen 10/325 mg Tablet PO PRN (11:11)
--- NOTE | 2017-07-21 17:36 | DIS ---
DATE OF ADMISSION: 07/18/2017 DATE OF DISCHARGE: 07/21/2017 PRIMARY CARE PHYSICIAN: Dr. Octavio Gates, out of town. DISCHARGE DIAGNOSES: 1. Hiatal hernia with small ulcer in it. 2. Gastric antral ulcer. 3. Chronic anemia. 4. Hypertension. 5. Fibromyalgia. 6. Gastroesophageal reflux disease. 7. Dyslipidemia. 8. Chronic anxiety. DISCHARGE MEDICATIONS: Remain the same medication except that hypertonic doses increased to 40 mg p. o. b.i.d. instead of daily. Resume the following home medications: Celexa 40 mg daily, allopurinol 300 mg daily, ferrous sulfate 325 mg daily, Vasotec 10 mg daily, Dulcolax daily, vitamin B12 daily, M iraLax daily as needed, multivitamin daily, [place] as needed, Zanaflex as needed, Wellbutrin 100 mg p. o. daily. DISCHARGE DISPOSITION: Home. PROCEDURES DONE IN THE HOSPITAL: Include EGD which shows a hiatal hernia with a small ulcer in it as well as a gastric antral ulcer and friability of the gastroesophageal junction, and multiple small g astric polyps. Duodenum was normal. CONSULTATIONS: Gastroenterology, Dr. Root. HISTORY OF PRESENT ILLNESS: Ms. Brown is a very pleasant 72-year-old female with a past medical hi story of gastroesophageal reflux disease, osteoarthritis, iron deficiency anemia, and hypertension, w ho presented to the emergency room for complaints of generalized weakness. She was admitted to our [facility] in 05/2017 for same, receiving multiple RBC transfusions. She was referred to the [facility] as an outpatient. She presented again with similar symptoms and was admitted for [facility] evaluation. Her hemoglobin was 6.8 and the patient actually drove herself to the emergency room wi th that. She was given packed RBCs and GI was consulted again. Please see admission history and y sical for further details. HOSPITAL COURSE: The patient remained hemodynamically stable after blood transfusion. Dr. Root saw the patient and took her to EGD which showed hiatal hernia with ulcer as well as small gastric a ntral ulcer. She was started and continued on proton pump inhibitor twice a day. She was discharged the next day after EGD, that is today. She was seen and examined prior to discharge. PHYSICAL EXAMINATION: This morning include, VITAL SIGNS: Temperature 97.8, pulse of 80, respirations 20, saturating 93% on room air, blood press ure 159/73. GENERAL: No acute distress, awake, alert, and oriented x3. The patient was showing me the pictures of her family on her phone. CHEST: Clear to auscultation. ABDOMEN: Soft, nontender, nondistended. No guarding, rebound or rigidity. HEART: Rate and rhythm is regular. LABORATORY EXAMINATION: Hemoglobin improved to 8.8 with hematocrit of 28.3. She had platelet count on 406 upon presentation, which is improved to 340. Serum chemistries are unremarkable. Pathology r eport from the duodenal gastric biopsy is pending at this time for which she will follow up with Dr. Root as an outpatient. Discharge plan was discussed with the patient who verbalized understanding.
== END 2017-07-21 14:58 | disposition home or self-care (01) | DRG 812 ==
LOC: ERS 13:19 → T4-B 19:39
PROVIDERS: ADMIT Internal Medicine; ATTEND Internal Medicine
PROC: 30233N1 Transfusion of Nonautologous Red Blood Cells into Peripheral Vein, Percutaneous Approach (ICD-10-PCS; principal; 2017-07-18)
PROC: 0DB98ZX Excision of Duodenum, Via Natural or Artificial Opening Endoscopic, Diagnostic (ICD-10-PCS; 2017-07-20)
PROC: 0DB68ZX Excision of Stomach, Via Natural or Artificial Opening Endoscopic, Diagnostic (ICD-10-PCS; 2017-07-20)
DX: D53.9 Nutritional anemia, unspecified (principal); F32.9 Major depressive disorder, single episode, unspecified; D50.9 Iron deficiency anemia, unspecified; M19.90 Unspecified osteoarthritis, unspecified site; M48.00 Spinal stenosis, site unspecified; I10 Essential (primary) hypertension; G51.0 Bell's palsy; M10.9 Gout, unspecified; F41.9 Anxiety disorder, unspecified; M79.7 Fibromyalgia; K25.9 Gastric ulcer, unspecified as acute or chronic, without hemorrhage or perforation; K31.7 Polyp of stomach and duodenum; K44.9 Diaphragmatic hernia without obstruction or gangrene; K21.9 Gastro-esophageal reflux disease without esophagitis
CPT/HCPCS: 36415; 36430; 80048; 80053; 80061; 82274; 85025; 86850; 86900; 86901; 88305; 88312; 99285; A4216; J2704; P9016

== ENCOUNTER 2017-12-11 15:41 | Emergency (ER) | payer MEDICARE ==
[2017-12-11 16:19] LABS: Hemoglobin 8.9 g/dL (12.0-16.0); Mean Corpuscular HGB CONC 31.6 g/dL (32.0-36.0); Mean Corpuscular Hemoglobin 21.9 pg (27.0-31.0); Mean Corpuscular Volume 69.2 fL (78.0-98.0); Mean Platelet Volume 9.5 fL (7.4-10.4); Platelet Count 371 thou/uL (130-400); RBC Distribution Width 17.1 % (11.5-14.5); Red Blood Cell (RBC) Count 4.06 mill/uL (4.20-5.40); White Blood Cell (WBC) Count 7.2 thou/uL (4.8-10.8)
[2017-12-11 16:38] LABS: ALT (SGPT) 12 U/L (8-55); AST (SGOT) 16 U/L (5-34); Albumin 4.3 g/dL (3.4-4.8); Alkaline Phosphatase 93 U/L (40-150); Anion Gap 14 mmol/L (10-20); BUN (Urea Nitrogen) 24 mg/dL (9.8-20.1); Bilirubin, Total 0.3 mg/dL (0.2-1.2); Calc. Creatinine Clearance 0 mL/min (70-130); Calcium 9.5 mg/dL (7.8-10.44); Carbon Dioxide 26 mmol/L (23-31); Chloride 102 mmol/L (98-107); Estimated GFR-MDRD 53; Globulin 3.2 g/dL (2.4-3.5); Glucose 108 mg/dL (83-110); Potassium 3.9 mmol/L (3.5-5.1); Protein, Total 7.5 g/dL (6.0-8.3); Sodium 138 mmol/L (136-145)
[2017-12-11 16:49] LABS: Anisocytosis SLIGHT = 6-15 cells (100X) (0-5/hpf); Band 1 % (5-11); Eosinophils 2 % (0-10); Hypochromia SLIGHT = 6-15 cells (100X) (0-5/hpf); Lymphocytes 7 % (21-51); MDiff Complete? YES; Microcytosis SLIGHT = 6-15 cells (100X) (0-5/hpf); Monocytes 16 % (0-10); Neutrophil 74 % (42-75); Ovalocytes SLIGHT = 2-5 cells (100X) (0-1/hpf); PLT Morphology Comment Appears Adequate; Tear Drops SLIGHT = 2-5 cells (100X) (0-1/hpf)
== END 2017-12-11 18:04 | disposition home or self-care (01) ==
LOC: ERS 15:41
DX: D64.9 Anemia, unspecified (principal); I10 Essential (primary) hypertension; G51.0 Bell's palsy; K21.9 Gastro-esophageal reflux disease without esophagitis; F41.9 Anxiety disorder, unspecified; Z79.899 Other long term (current) drug therapy
CPT/HCPCS: 80053; 85025; 86850; 86900; 86901; 99284

== ENCOUNTER 2018-07-20 12:15 | Outpatient (CLI) | payer MEDICARE, MEDICAID ==
[2018-07-20] MEDS ORDERED: Gadobenate Dimeglumine 529 MG/1 ML (20ML VIAL) ONE (13:18)
--- NOTE | 2018-07-20 15:16 | MRI ---
MRI CERVICAL SPINE WITHOUT CONTRAST: HISTORY: Neck pain. Cervical pain with bilateral hand tingling x 1 year. Progressive worsening. COMPARISON: None. TECHNIQUE: Appropriate T1 marrow signal intensity of the cervical vertebrae. Cervical spine vertebral body heig ht is maintained. There is no fracture. No significant STIR hyperintensity to suggest vertebral bod y edema from fracture. No MRI evidence of ligamentous injury. Intrinsic T1 and T2 hyperintensity with associated STIR hyperintensity at C7 compatible with an osseo us hemangioma. 1.8 mm of C2 upon C3. 1.6 mm of retrolisthesis of C4 upon C5. Visualized brain parenchyma, cervicomedullary junction, cervical cord, and the upper thoracic cord paz ve a normal size and signal intensity. C2-C3: Central disk-osteophyte complex deforms the thecal sac. There is deformity of the cervical c ord. Moderate central canal stenosis. Mild right foraminal narrowing. The left neural foramen is p atent. C3-C4: Bilateral disk-osteophyte complex abuts the thecal sac. Ventral subarachnoid space is still maintained. Mild central canal stenosis. Moderate right and mild left foraminal narrowing. C4-C5: Broad-based disk-osteophyte complex abuts the thecal sac. Ventral subarachnoid space is effa basim. There is deformity of the ventral cord, without T2 hyperintensity in the cord. Mild moderate c entral canal stenosis. Degenerative change in bilateral uncovertebral joints results in moderate to severe right and severe left foraminal narrowing. C5-C6: Broad-based disk-osteophyte complex abuts the thecal sac. Subarachnoid space is effaced. Th ere is deformity of the cervical cord without T2 hyperintensity in the cord. Moderate central canal stenosis. Moderate to severe right and moderate left foraminal narrowing. C6-C7: Broad-based disk-osteophyte complex abuts the thecal sac. There is severe central canal sten osis. There is deformity of the cervical cord without T2 hyperintensity in the cord. Moderate right and left foraminal narrowing. C7-T1: No high-grade central canal stenosis or high-grade foraminal narrowing. IMPRESSION: Degenerative changes of the cervical spine as above. There is significant central canal stenosis at multiple levels without signal abnormality in the cord. POS: [facility]
--- NOTE | 2018-07-20 15:45 | MRI ---
MRI THORACIC SPINE: HISTORY: Thoracic pain. FINDINGS: Multiplanar, multisequence noncontrast-enhanced MRI images thoracic spine obtained. Images demonstrate extensive disk space height loss with fusion of the T7-8, 8-9, 9-10, and 10-11 lev els. There is a broad-based disk-osteophyte complex at T10-11. The spinal cord is unremarkable. No significant evidence of disk herniation is seen. There does graham ear to be severe right T10-11 neural foraminal narrowing. This is due to disk-osteophyte complex as well as facet hypertrophy. A large hiatal hernia is present. IMPRESSION: Right and left T10-11 neural foraminal narrowing. Broad-based disk-osteophyte complex is seen at the T10-11 level as well. No significant evidence of thecal sac compression seen. No evidence of cord compression seen. POS: [facility]
--- NOTE | 2018-07-20 16:08 | RAD ---
CERVICAL SPINE FIVE VIEWS: HISTORY: Neck pain. TECHNIQUE: AP, lateral, flexion, extension, and open-mouth odontoid views of the cervical spine obtained. FINDINGS: Images demonstrate disk space height loss with anterior and posterior osteophytes at C3-C4, C4-C5, C5 -C6, and C6-C7. This is compatible with extensive cervical changes of spondylosis. There is loss of the normal lordotic curvature of the cervical spine. IMPRESSION: Mid and lower cervical changes of spondylosis. POS: [facility]
--- NOTE | 2018-07-20 16:43 | MRI ---
MRI LUMBAR SPINE WITH AND WITHOUT CONTRAST: HISTORY: Low back pain with bilateral foot tingling x many years. Progressive worsening. Previous lumbar vance vesta. COMPARISON: None. TECHNIQUE: MRI lumbar spine is performed with and without intravenous Gadolinium administration. Multisequentia l, multiplanar imaging is performed. FINDINGS: Appropriate T1 marrow signal intensity of the lumbar vertebrae. Lumbar spine vertebral body height i s maintained. No fracture. There are type I Modic changes at L3-L4. 2.3 mm of anterolisthesis of L3 upon L4 and L4 upon L5. On the postcontrast images, there is mild enhancement at the type I Modic change. No abnormal enhancem ent with regards to the contents of the thecal sac including the cauda equina and conus medullaris. Symmetric signal intensity of the psoas muscles. Appropriate signal intensity of the visualized larry d organs. Conus medullaris terminates at the lower aspect of L1. T12-L1: Adequate disk hydration. No significant central canal stenosis. Foramen are patent. L1-L2: Adequate disk hydration. No significant central canal stenosis. Neural foramina are patent. L2-L3: Desiccation with mild loss of disk space height. Generalized disk bulge, ligamentum flavum t hickening, and facet hypertrophy result in severe central canal stenosis. Mild bilateral foraminal n arrowing. L3-L4: Severe loss of disk space height. Broad-based disk bulge, ligamentum flavum thickening, and facet hypertrophy result in severe central canal stenosis. Mild right and moderate to severe left fo raminal narrowing. L4-L5: Desiccation with severe loss of disk space height. There is a broad-based disk bulge, ligame ntum flavum thickening, and facet hypertrophy that result in mild central canal stenosis at the level of the disk space. In the right subarticular zone, there is a 0.8 cm T1 and T2 isointense focus wit h evidence of enhancement, compatible with scar tissue. This scar tissue causes mass effect and disp laces the traversing right L5 nerve root. Moderate to severe right and left neural foraminal narrowi ng. L5-S1: Desiccation with severe loss of disk space height. There is a broad-based disk bulge without significant central canal stenosis. There is bilateral facet hypertrophy. Moderate bilateral neura l foraminal narrowing. IMPRESSION: 1. Degenerative change of the lumbar spine as described above. Spondylolisthesis as described above . 2. There is severe central canal stenosis at L3-L4 and L2-L3. 3. Scar tissue in the right subarticular zone at L4-L5 with mass effect and displacement of the kathia ersing right L5 nerve root. POS: [facility]
== END 2018-07-20 12:16 | disposition home or self-care (01) ==
LOC: BICMRI 12:15
DX: M54.6 Pain in thoracic spine (principal); M54.2 Cervicalgia; M54.5 Low back pain; M47.812 Spondylosis without myelopathy or radiculopathy, cervical region; M43.16 Spondylolisthesis, lumbar region; M47.816 Spondylosis without myelopathy or radiculopathy, lumbar region; M48.061 Spinal stenosis, lumbar region without neurogenic claudication; M51.26 Other intervertebral disc displacement, lumbar region; M48.04 Spinal stenosis, thoracic region; M25.78 Osteophyte, vertebrae; M48.02 Spinal stenosis, cervical region
CPT/HCPCS: 72050; 72141; 72146; 72158; 82565; A9577

== ENCOUNTER 2021-07-30 11:30 | Inpatient (IN) | payer MEDICARE, MEDICAID ==
[2021-07-30 13:04] LABS: Hemoglobin 10.7 g/dL (12.0-15.5); Mean Corpuscular HGB CONC 31.6 g/dL (32.0-36.0); Mean Corpuscular Hemoglobin 27.6 pg (27.0-33.0); Mean Corpuscular Volume 87.4 fl (81.6-98.3); Mean Platelet Volume 11.9 fl (7.4-10.4); Platelet Count 183 10x3/uL (150-450); RBC Distribution Width 15.7 % (11.5-14.5); Red Blood Cell (RBC) Count 3.88 10x6/uL (3.90-5.03); White Blood Cell (WBC) Count 5.7 10x3/uL (3.5-10.5)
[2021-07-30 13:25] LABS: Prothrombin Time 11.3 sec (9.5-12.1)
[2021-07-30 13:31] LABS: ALT (SGPT) 11 U/L (8-55); AST (SGOT) 15 U/L (5-34); Alkaline Phosphatase 82 U/L (40-110); Anion Gap 12 mmol/L (10-20); BUN (Urea Nitrogen) 13 mg/dL (9.8-20.1); Bilirubin, Total 0.4 mg/dL (0.2-1.2); Calc. Creatinine Clearance 0 mL/min (70-130); Calcium 9.1 mg/dL (7.8-10.44); Carbon Dioxide 29 mmol/L (23-31); Chloride 104 mmol/L (98-107); Globulin 2.9 g/dL (2.4-3.5); Glucose 109 mg/dL (83-110); Potassium 4.7 mmol/L (3.5-5.1); Protein, Total 6.9 g/dL (5.8-8.1); Sodium 140 mmol/L (136-145)
[2021-07-30 14:31] VITALS: BMI 32.1
[2021-07-30 21:50] LABS: SARS-CoV-2 PCR by NAA Not Detected (NotDetected)
[2021-08-02] MEDS ORDERED: Heparin 10,000 UNITS/ 10 ML VIAL ONE (06:35)
[2021-08-02] MEDS ORDERED: Rocuronium Bromide 10 MG/ML (10ML VIAL) ONE (07:54)
[2021-08-02] MEDS ORDERED: GLYCOPYRROLATE/PF 0.2 MG/ML VIAL ONE (07:54)
[2021-08-02] MEDS ORDERED: Dexamethasone 20 MG/5 ML VIAL ONE (07:54)
[2021-08-02] MEDS ORDERED: Ondansetron PF 4 MG/2 ML Vial ONE (07:54)
[2021-08-02] MEDS ORDERED: Labetalol HCl 100 MG/20 ML VIAL ONE (07:54)
[2021-08-02] MEDS ORDERED: Lidocaine 1% PF 5 ML VIAL ONE (07:54)
[2021-08-02] MEDS ORDERED: Ketorolac Tromethamine 30 MG/ML VIAL ONE (07:54)
[2021-08-02] MEDS ORDERED: PROPOFOL 200 MG/20 ML VIAL ONE (07:54)
[2021-08-02] MEDS ORDERED: Protamine Sulfate 50 MG/5 ML VIAL ONE (09:11)
[2021-08-02] MEDS ORDERED: Iopamidol 370 76% 100 ML VIAL ONE (11:01)
== END 2021-08-02 14:55 | disposition home or self-care (01) | DRG 274 ==
LOC: SURG A 08-02 06:03
PROVIDERS: ADMIT Internal Medicine Cardiovascular Disease; ATTEND Internal Medicine Cardiovascular Disease
PROC: 02L73DK Occlusion of Left Atrial Appendage with Intraluminal Device, Percutaneous Approach (ICD-10-PCS; principal; 2021-08-02)
DX: I48.0 Paroxysmal atrial fibrillation (principal); K92.2 Gastrointestinal hemorrhage, unspecified; Z00.6 Encounter for examination for normal comparison and control in clinical research program; Z20.822 Contact with and (suspected) exposure to COVID-19; I25.10 Atherosclerotic heart disease of native coronary artery without angina pectoris; N18.9 Chronic kidney disease, unspecified; I12.9 Hypertensive chronic kidney disease with stage 1 through stage 4 chronic kidney disease, or unspecified chronic kidney disease; G89.29 Other chronic pain; M54.9 Dorsalgia, unspecified; G51.0 Bell's palsy; Z86.73 Personal history of transient ischemic attack (TIA), and cerebral infarction without residual deficits; Z79.899 Other long term (current) drug therapy; Z88.2 Allergy status to sulfonamides; Z79.01 Long term (current) use of anticoagulants; I25.2 Old myocardial infarction; Z79.02 Long term (current) use of antithrombotics/antiplatelets; Z79.82 Long term (current) use of aspirin; Z01.812 Encounter for preprocedural laboratory examination
CPT/HCPCS: 33340; 36430; 80053; 85027; 85347; 85610; 86850; 86900; 86901; 93312; 93662; C1759; J1100; J1644; J1885; J2405; J2704; J2720; J3490; Q9967; U0003; U0005

== ENCOUNTER 2021-07-30 11:53 | Outpatient (CLI) | payer MEDICARE, MEDICAID ==
[2021-07-30 13:04] LABS: Hemoglobin 10.7 g/dL (12.0-15.5); Mean Corpuscular HGB CONC 31.6 g/dL (32.0-36.0); Mean Corpuscular Hemoglobin 27.6 pg (27.0-33.0); Mean Corpuscular Volume 87.4 fl (81.6-98.3); Mean Platelet Volume 11.9 fl (7.4-10.4); Platelet Count 183 10x3/uL (150-450); RBC Distribution Width 15.7 % (11.5-14.5); Red Blood Cell (RBC) Count 3.88 10x6/uL (3.90-5.03); White Blood Cell (WBC) Count 5.7 10x3/uL (3.5-10.5)
[2021-07-30 13:25] LABS: Prothrombin Time 11.3 sec (9.5-12.1)
[2021-07-30 13:31] LABS: ALT (SGPT) 11 U/L (8-55); AST (SGOT) 15 U/L (5-34); Alkaline Phosphatase 82 U/L (40-110); Anion Gap 12 mmol/L (10-20); BUN (Urea Nitrogen) 13 mg/dL (9.8-20.1); Bilirubin, Total 0.4 mg/dL (0.2-1.2); Calc. Creatinine Clearance 0 mL/min (70-130); Calcium 9.1 mg/dL (7.8-10.44); Carbon Dioxide 29 mmol/L (23-31); Chloride 104 mmol/L (98-107); Globulin 2.9 g/dL (2.4-3.5); Glucose 109 mg/dL (83-110); Potassium 4.7 mmol/L (3.5-5.1); Protein, Total 6.9 g/dL (5.8-8.1); Sodium 140 mmol/L (136-145)
[2021-07-30 21:50] LABS: SARS-CoV-2 PCR by NAA Not Detected (NotDetected)
== END 2021-07-30 11:54 | disposition home or self-care (01) ==
LOC: LABBT 11:53
PROVIDERS: ATTEND Internal Medicine Cardiovascular Disease
DX: Z01.812 Encounter for preprocedural laboratory examination (principal); I48.0 Paroxysmal atrial fibrillation; K92.2 Gastrointestinal hemorrhage, unspecified; Z20.822 Contact with and (suspected) exposure to COVID-19
CPT/HCPCS: 80053; 85027; 85610; 86850; 86900; 86901; 86920; U0003; U0005

== ENCOUNTER 2021-09-12 09:54 | Outpatient (CLI) | payer MEDICARE, MEDICAID ==
[2021-09-12 12:48] LABS: Hemoglobin 10.9 g/dL (12.0-15.5); Mean Corpuscular HGB CONC 32.1 g/dL (32.0-36.0); Mean Corpuscular Volume 84.2 fl (81.6-98.3); Mean Platelet Volume 11.2 fl (7.4-10.4); Platelet Count 225 10x3/uL (150-450); RBC Distribution Width 15.1 % (11.5-14.5); Red Blood Cell (RBC) Count 4.04 10x6/uL (3.90-5.03); White Blood Cell (WBC) Count 8.3 10x3/uL (3.5-10.5)
[2021-09-12 12:58] LABS: Prothrombin Time 10.7 sec (9.5-12.1)
[2021-09-12 13:10] LABS: Anion Gap 14 mmol/L (10-20); BUN (Urea Nitrogen) 14 mg/dL (9.8-20.1); Calc. Creatinine Clearance 0 mL/min (70-130); Carbon Dioxide 26 mmol/L (23-31); Chloride 104 mmol/L (98-107); Glucose 97 mg/dL (83-110); Sodium 140 mmol/L (136-145)
[2021-09-12 22:21] LABS: SARS-CoV-2 PCR by NAA Not Detected (NotDetected)
== END 2021-09-12 09:55 | disposition home or self-care (01) ==
LOC: LABBT 09:54
PROVIDERS: ATTEND Internal Medicine Cardiovascular Disease
DX: Z01.812 Encounter for preprocedural laboratory examination (principal); I48.0 Paroxysmal atrial fibrillation; Z20.822 Contact with and (suspected) exposure to COVID-19
CPT/HCPCS: 80048; 85027; 85610; U0003; U0005